=== PATIENT | female | born 1965 | race Caucasian/White ===

== ENCOUNTER 2020-02-02 08:01 | Emergency (ER) | payer MEDICAID ==
[~2020-02-02] VITALS: Ht 154.9 cm; Wt 52.0 kg
[2020-02-02 08:05] VITALS: BP 144/92
--- NOTE | 2020-02-02 08:08 | NUR ---
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
[2020-02-02] MEDS ORDERED: POTASSIUM CHLORIDE 20 MEQ TAB.ER.PRT PO ONE (09:05)
== END 2020-02-02 09:00 | disposition home or self-care (01) ==
LOC: ED 08:50
DX: R21 Rash and other nonspecific skin eruption (principal)
CPT/HCPCS: 99283

== ENCOUNTER 2021-05-27 19:11 | Emergency (ER) | payer MEDICAID ==
[~2021-05-27] VITALS: Ht 154.9 cm; Wt 50.3 kg
[2021-05-27 19:16] VITALS: BP 121/83
[2021-05-27] MEDS ORDERED: L.E.T SOLUTION TP ONE ×2 (19:30→19:52)
[2021-05-27] MEDS ORDERED: DIPH,PERTUSS(ACELL),TET VAC/PF 0.5 ML IM-VACC ONE ×2 (19:30→19:52)
[2021-05-27] MEDS ORDERED: NEOSPORIN OINT. PKT 1 PACKET ONE (20:25)
[2021-05-27] MEDS ORDERED: BACITRACIN OINT 500U/GM, 28GM TP ONE (20:30)
[2021-05-27] MEDS ORDERED: ACETAMINOPHEN 500 MG TABLET PO ONE (20:30)
[2021-05-27] MEDS ORDERED: IBUPROFEN 600 MG TABLET PO ONE (20:30)
[2021-05-27] MEDS ORDERED: ACETAMINOPHEN 500 MG TABLET ONE (20:32)
[2021-05-27] MEDS ORDERED: IBUPROFEN 600 MG TABLET ONE (20:32)
== END 2021-05-27 21:16 | disposition home or self-care (01) ==
LOC: ED 21:03
DX: S91.332A Puncture wound without foreign body, left foot, initial encounter (principal); X58.XXXA Exposure to other specified factors, initial encounter; Y93.89 Activity, other specified; Y92.89 Other specified places as the place of occurrence of the external cause; Y99.8 Other external cause status
CPT/HCPCS: 90471; 90715; 99284